=== PATIENT | female | born 1995 | race African-American/Black ===

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

== ENCOUNTER 2017-02-04 14:24 | Emergency (ER) | payer OTHER ==
[~2017-02-04] VITALS: Ht 162.6 cm; Wt 69.4 kg
[~2017-02-04 14:24] MED LIST changes: +CIPR250T30 PO; +METR500T PO
[2017-02-04 15:39] LABS: BILIRUBIN,URINE SMALL (NEG); GLUCOSE,URINE NEGATIVE (NEG); NITRITE,URINE NEGATIVE (NEG); PROTEIN,URINE NEGATIVE (NEG-TRACE)
--- NOTE | 2017-02-04 15:51 | PHYS DOC ---
Past Medical History Past Medical History: Anxiety, Bipolar, Other Additional Past Medical Histor: ADHD Past Surgical History: No Surgical History Alcohol Use: None Drug Use: None Adult General Chief Complaint Chief Complaint: NEAR SYNCOPE HPI HPI Patient is a 21 year old female who presents to the emergency department for evaluation after having a near syncopal episode while at work. 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 The patient also noted that she was having "hot flashes" during this episode. Patient did not lose consciousness and did not experience a fall or injury as a result of this episode. The patient states that she is currently feeling better and has no complaints. The patient however does state over the past few days she has been having intermittent nausea. The patient admits that she is 3 days late on her menstrual cycle and that after this episode she went home and took 2 tests, both which were positive. The patient's primary concern coming to the emergency department is to confirm . Patient denies previous history of . Patient states that she is not on any medications and denies any known health problems. Patient is an active smoker. Review of Systems Review of Systems Constitutional: Denies fever or chills [] Eyes: Denies change in visual acuity, redness, or eye pain [] HENT: Denies nasal congestion or sore throat [] Respiratory: Denies cough or shortness of breath [] Cardiovascular: Near syncope, denies chest pain or edema[] GI: Denies abdominal pain, nausea, vomiting, bloody stools or diarrhea [] : Denies dysuria or hematuria [] Musculoskeletal: Denies back pain or joint pain [] Integument: Denies rash or skin lesions [] Neurologic: Denies headache, focal weakness or sensory changes [] Allergies Allergies Allergies Coded Allergies Type Severity Reaction Last Updated Verified No Known Allergies Allergy Unknown 11/03/15 Yes Physical Exam Physical Exam Constitutional: Well developed, well nourished, no acute distress, non-toxic appearance. [] HENT: Normocephalic, atraumatic, bilateral external ears normal, oropharynx moist, no oral exudates, nose normal. [] Eyes: PERRLA, EOMI, conjunctiva normal, no discharge. [] Neck: Normal range of motion, no tenderness, supple, no stridor. [] Cardiovascular:Heart rate regular rhythm, no murmur [] Lungs & Thorax: Bilateral breath sounds clear to auscultation [] Abdomen: Bowel sounds normal, soft, no tenderness, no masses, no pulsatile masses. [] Skin: Warm, dry, no erythema, no rash. [] Back: No tenderness, no CVA tenderness. [] Extremities: No tenderness, no cyanosis, no clubbing, ROM intact, no edema. [] Neurologic: Alert and oriented X 3, normal motor function, normal sensory function, no focal deficits noted. [] Current Patient Data Vital Signs Vital Signs Date Time Temp Pulse Resp B/P (MAP) Pulse Ox O2 Delivery O2 Flow Rate FiO2 02/04/17 14:38 98.8 95 18 76/70 (72) 98 Room Air 98.8 Lab Values Laboratory Tests Test 02/04/17 14:32 02/04/17 14:41 02/04/17 15:39 Urine Collection Type Unknown Urine Color Yellow Urine Clarity Clear Urine pH 6.0 Urine Specific [place] >=1.030 Urine Protein Negative mg/dL (NEG-TRACE) Urine Glucose (UA) Negative mg/dL (NEG) Urine Ketones (Stick) Trace mg/dL (NEG) Urine Blood Negative (NEG) Urine Nitrite Negative (NEG) Urine Bilirubin Small (NEG) Urine Urobilinogen Dipstick 1.0 mg/dL (0.2 mg/dL) Urine Leukocyte Esterase Negative (NEG) Urine RBC 0 /HPF (0-2) Urine WBC 1-4 /HPF (0-4) Urine Squamous Epithelial Cells Mod /LPF Urine Bacteria Moderate /HPF (0-FEW) Urine Mucus Marked /LPF POC Urine HCG, Qualitative Hcg positive (Negative) Maternal Serum HCG Beta Subunit 72 mIU/mL (0-5) H EKG EKG Rhythm strip interpretation by me: Heart rate 89, sinus rhythm, no ectopy Radiology/Procedures Radiology/Procedures Not performed[] Course & Med Decision Making Course & Med Decision Making Pertinent Labs and Imaging studies reviewed. (See chart for details) The patient's urine hCG was positive. Patient's serum hCG is 72 which would be expected with the patient being 3 days late from her normal menstrual cycle. The patient is otherwise in no acute distress and is feeling no pain at this time. The patient's UA showed a high specific gravity which would coincide with dehydration. This likely led to the patient's near syncopal episode today at work. Patient recommended to go home today for rest and hydration. Counseled patient on smoking cessation in the emergency department as this can be harmful to developing baby during . Patient voiced understanding. The patient will be medically cleared to return to work tomorrow. Patient was referred to Dr. Raya of [facility] to schedule routine follow-up in the next 3-4 weeks. Advised return to the emergency department for any worsening symptoms. The patient voiced understanding and in agreement with treatment plan. Dragon Disclaimer Dragon Disclaimer This electronic medical record was generated, in whole or in part, using a voice recognition dictation system. Departure Departure Impression: Primary Impression: Positive test Additional Impression: Dehydration Disposition: 01 HOME, SELF-CARE Condition: IMPROVED Referrals: CALEB SAUL MD (PCP) IRIS LEWIS MD Patient Instructions: Dehydration, Adult, Additional Instructions: Be sure to rest and drink fluids today as your lab work showed evidence of mild dehydration. This likely contributed to your symptoms of near fainting while at work. You were found to have a positive test at today's visit. Based off of your menstrual period, you are approximately 4 weeks . It is recommended that you follow-up with an [facility] in the next 3-4 weeks for reevaluation and for care. Is also recommended that you take a vitamin once daily during her . Return to the emergency department for any worsening symptoms. Scripts Pnv With Ca,No.72/Iron,Carb/Fa ( PLUS IRON TABLET) 1 Each Tablet 1 TAB PO DAILY, #30 TAB 3 Refills Prov: AIMEE RICHARDSON MD 02/04/17 Problem Qualifiers AIMEE RICHARDSON MD Feb 04, 2017 15:51
[2017-02-04 16:01] LABS: BACTERIA,URINE MODERATE /HPF (0-FEW); RBC,URINE 0 /HPF (0-2); SQUAMOUS EPITHELIAL CELL,UR MOD /LPF
[2017-02-04 16:34] VITALS: BP 136/77
[2017-02-04] MEDS ORDERED: PNV1TABL34 PO (16:42)
== END 2017-02-04 16:59 | disposition home or self-care (01) ==
LOC: ER 14:24
DX: E86.0 Dehydration (principal); F90.9 Attention-deficit hyperactivity disorder, unspecified type; F31.9 Bipolar disorder, unspecified; R55 Syncope and collapse; R11.0 Nausea; R41.9 Unspecified symptoms and signs involving cognitive functions and awareness
CPT/HCPCS: 36415; 81001; 81025; 84702; 87086; 99284

== ENCOUNTER 2017-04-03 00:26 | Emergency (ER) | payer OTHER ==
[~2017-04-03] VITALS: Ht 162.6 cm; Wt 68.0 kg
[~2017-04-03 00:26] MED LIST changes: +PNV1TABL34 PO
[2017-04-03 00:32] VITALS: BP 116/63
[2017-04-03 00:59] LABS: BASO # 0.1 x10^3/uL (0.0-0.2); BASO % 0 % (0-3); EOS % 2 % (0-3); HEMATOCRIT 36.3 % (36.0-47.0); HEMOGLOBIN 12.5 g/dL (12.0-15.5); LYMPH # 2.9 x10^3/uL (1.0-4.8); LYMPH % 16 % (24-48); MEAN CORPUSCULAR HEMOGLOBIN 34 pg (25-35); MEAN CORPUSCULAR HGB CONC 34 g/dL (31-37); MEAN CORPUSCULAR VOLUME 99 fL (79-100); MONO % 6 % (0-9); NEUT % 76 % (31-73); PLATELET COUNT 270 x10^3/uL (140-400); RED BLOOD COUNT 3.66 x10^6/uL (3.50-5.40); RED CELL DISTRIBUTION WIDTH 12.7 % (11.5-14.5); WHITE BLOOD COUNT 17.9 x10^3/uL (4.0-11.0)
[2017-04-03 01:01] LABS: BILIRUBIN,URINE NEGATIVE (NEG); GLUCOSE,URINE NEGATIVE (NEG); NITRITE,URINE NEGATIVE (NEG); PROTEIN,URINE NEGATIVE (NEG-TRACE); UROBILINOGEN,URINE 0.2 mg/dL (0.2 mg/dL)
[2017-04-03 01:10] LABS: CALCIUM 8.9 mg/dL (8.5-10.1); CREATININE 0.6 mg/dL (0.6-1.0); GFR 155.8; POTASSIUM 3.4 mmol/L (3.5-5.1)
[2017-04-03 01:11] LABS: BACTERIA,URINE FEW /HPF (0-FEW); RBC,URINE OCC /HPF (0-2); SQUAMOUS EPITHELIAL CELL,UR FEW /LPF
[2017-04-03 01:17] LABS: ALBUMIN 3.4 g/dL (3.4-5.0); ALBUMIN/GLOBULIN RATIO 0.9 (1.0-1.7); TOTAL BILIRUBIN 0.3 mg/dL (0.2-1.0); TOTAL PROTEIN 7.3 g/dL (6.4-8.2)
--- NOTE | 2017-04-03 01:51 | RAD ---
Obstetrical ultrasound 04/03/2017 INDICATION: Vaginal bleeding. LMP 01/03/2017. COMPARISON: Ultrasound pelvis September 13, 2016 TECHNIQUE: Sonographic imaging of the pelvis was performed utilizing transabdominal and transvaginal imaging. FINDINGS: The uterus measures 9.6 x 6.9 x 5.9 cm. A single gestational sac is identified with a fetus with crown-rump length measuring 2.3 cm compatible with a gestational age of 9 weeks 0 days. No heart tones are identified. The right ovary measures 3.4 x 1.9 x 1.9 cm. The left ovary measures 3.1 x 1.3 x 1.3 cm. Arterial and venous waveforms are identified within the ovaries bilaterally at time of imaging. Corpus luteum is noted within the right ovary measuring 2.1 x 1.8 cm. There is no free fluid within the pelvis. IMPRESSION: Single intrauterine gestation is identified with crown-rump length compatible gestational age of 9 weeks 0 days. Gestational age is discordant with provided LMP. Additionally, no heart tones are identified suggestive of failure. Critical results were discussed with Dr. Webber at 1:45 AM on 04/03/2017. Electronically signed by: Sara Miller MD (04/03/2017 1:48 AM) [facility]
[2017-04-03 02:38] LABS: PLT ESTIMATE ADEQUATE (ADEQUATE)
--- NOTE | 2017-04-03 03:24 | PHYS DOC ---
Past Medical History Past Medical History: Anxiety, Bipolar, Other Additional Past Medical Histor: ADHD Past Surgical History: No Surgical History Alcohol Use: None Drug Use: None Adult General Chief Complaint Chief Complaint: VAGINAL BLEEDING HPI HPI Patient is a 21 year old female who presents with vaginal bleeding in early . Patient is , at 12 weeks gestation. Reports onset of vaginal spotting this afternoon. Has not required use of pads. She denies any associated pain. She states symptoms began after having intercourse. She denies fevers or chills, nausea or vomiting, dysuria or hematuria, vaginal discharge. Has not yet established care with an OB. Review of Systems Review of Systems Constitutional: Denies fever or chills HENT: Denies nasal congestion or sore throat Respiratory: Denies cough or shortness of breath Cardiovascular: Denies chest pain or edema GI: Denies abdominal pain, nausea, vomiting : [place] vaginal bleeding Musculoskeletal: Denies back pain or joint pain Integument: Denies rash or skin lesions Neurologic: Denies headache, focal weakness or sensory changes All other systems were reviewed and found to be within normal limits, except as documented in this note. Allergies Allergies Allergies Coded Allergies Type Severity Reaction Last Updated Verified No Known Allergies Allergy Unknown 11/03/15 Yes Physical Exam Physical Exam Constitutional: Well developed, well nourished, no acute distress, non-toxic appearance. HENT: Normocephalic, atraumatic, bilateral external ears normal, oropharynx moist, nose normal. Eyes: PERRLA, EOMI, conjunctiva normal, no discharge. Neck: supple, no stridor. Cardiovascular: RRR, no murmurs, no edema. Lungs & Thorax: LCTAB, no wheezing, no respiratory distress. Abdomen: soft, nontender, nondistended. no masses or pulsatile masses, no rebound/guarding. Skin: Warm, dry, no erythema, no rash. Back: No CVA tenderness. Extremities: No tenderness, no edema. Neurologic: Alert and oriented X 3, no focal deficits noted. Psychologic: Affect normal, judgement normal, mood normal. Current Patient Data Vital Signs Vital Signs Date Time Temp Pulse Resp B/P (MAP) Pulse Ox O2 Delivery O2 Flow Rate FiO2 04/03/17 00:32 98.9 99 18 116/63 (80) 99 Room Air 98.9 Lab Values Laboratory Tests Test 04/03/17 00:30 04/03/17 00:47 Urine Collection Type Unknown Urine Color Yellow Urine Clarity Clear Urine pH 6.0 Urine Specific [place] 1.020 Urine Protein Negative mg/dL (NEG-TRACE) Urine Glucose (UA) Negative mg/dL (NEG) Urine Ketones (Stick) Negative mg/dL (NEG) Urine Blood Large (NEG) Urine Nitrite Negative (NEG) Urine Bilirubin Negative (NEG) Urine Urobilinogen Dipstick 0.2 mg/dL (0.2 mg/dL) Urine Leukocyte Esterase Negative (NEG) Urine RBC Occ /HPF (0-2) Urine WBC 1-4 /HPF (0-4) Urine Squamous Epithelial Cells Few /LPF Urine Bacteria Few /HPF (0-FEW) Urine Mucus Mod /LPF White Blood Count 17.9 x10^3/uL (4.0-11.0) H Red Blood Count 3.66 x10^6/uL (3.50-5.40) Hemoglobin 12.5 g/dL (12.0-15.5) Hematocrit 36.3 % (36.0-47.0) Mean Corpuscular Volume 99 fL (79-100) Mean Corpuscular Hemoglobin 34 pg (25-35) Mean Corpuscular Hemoglobin Concent 34 g/dL (31-37) Red Cell Distribution Width 12.7 % (11.5-14.5) Platelet Count 270 x10^3/uL (140-400) Neutrophils (%) (Auto) 76 % (31-73) H Lymphocytes (%) (Auto) 16 % (24-48) L Monocytes (%) (Auto) 6 % (0-9) Eosinophils (%) (Auto) 2 % (0-3) Basophils (%) (Auto) 0 % (0-3) Neutrophils # (Auto) 13.5 x10^3uL (1.8-7.7) H Lymphocytes # (Auto) 2.9 x10^3/uL (1.0-4.8) Monocytes # (Auto) 1.1 x10^3/uL (0.0-1.1) Eosinophils # (Auto) 0.3 x10^3/uL (0.0-0.7) Basophils # (Auto) 0.1 x10^3/uL (0.0-0.2) Segmented Neutrophils % 65 % (35-66) Band Neutrophils % 2 % (0-9) Lymphocytes % 32 % (24-48) Atypical Lymphocytes % (Manual) 1 % (0-0) H Platelet Estimate Adequate (ADEQUATE) Giant Platelets Occ Maternal Serum HCG Beta Subunit 4076 mIU/mL (0-5) H Sodium Level 136 mmol/L (136-145) Potassium Level 3.4 mmol/L (3.5-5.1) L Chloride Level 99 mmol/L (98-107) Carbon Dioxide Level 25 mmol/L (21-32) Anion Gap 12 (6-14) Blood Urea Nitrogen 10 mg/dL (7-20) Creatinine 0.6 mg/dL (0.6-1.0) Estimated GFR (Cockcroft-Gault) 155.8 BUN/Creatinine Ratio 17 (6-20) Glucose Level 98 mg/dL (70-99) Calcium Level 8.9 mg/dL (8.5-10.1) Total Bilirubin 0.3 mg/dL (0.2-1.0) Aspartate Amino Transferase (AST) 20 U/L (15-37) Alanine Aminotransferase (ALT) 30 U/L (14-59) Alkaline Phosphatase 63 U/L (46-116) Total Protein 7.3 g/dL (6.4-8.2) Albumin 3.4 g/dL (3.4-5.0) Albumin/Globulin Ratio 0.9 (1.0-1.7) L Laboratory Tests 04/03/17 00:47 Laboratory Tests 04/03/17 00:47 EKG EKG [] Radiology/Procedures Radiology/Procedures PROCEDURE: OB < 14 WKS Obstetrical ultrasound 04/03/2017 INDICATION: Vaginal bleeding. LMP 01/03/2017. COMPARISON: Ultrasound pelvis September 13, 2016 TECHNIQUE: Sonographic imaging of the pelvis was performed utilizing transabdominal and transvaginal imaging. FINDINGS: The uterus measures 9.6 x 6.9 x 5.9 cm. A single gestational sac is identified with a fetus with crown-rump length measuring 2.3 cm compatible with a gestational age of 9 weeks 0 days. No heart tones are identified. The right ovary measures 3.4 x 1.9 x 1.9 cm. The left ovary measures 3.1 x 1.3 x 1.3 cm. Arterial and venous waveforms are identified within the ovaries bilaterally at time of imaging. Corpus luteum is noted within the right ovary measuring 2.1 x 1.8 cm. There is no free fluid within the pelvis. IMPRESSION: Single intrauterine gestation is identified with crown-rump length compatible gestational age of 9 weeks 0 days. Gestational age is discordant with provided LMP. Additionally, no heart tones are identified suggestive of failure. Critical results were discussed with Dr. Webber at 1:45 AM on 04/03/2017. Electronically signed by: Vic Carl MD (04/03/2017 1:48 AM) [facility] DICTATED and SIGNED BY: VIC CARL MD DATE: 04/03/17 0141 [] Course & Med Decision Making Course & Med Decision Making Pertinent Labs and Imaging studies reviewed. (See chart for details) The patient presents with vaginal bleeding in early . Vitals are stable , not tachycardic or hypotensive. OB ultrasound showed a fetus smaller than expected based on LMP, no heart tones identified. I did notify patient of results and she was very distraught. She became tearful and wanted to leave the department immediately. She declined pelvic exam. She did not receive potassium supplementation. She did not wait for written discharge instructions. Both I and the nurse provided verbal instructions. Recommend rest/pelvic rest, Tylenol or ibuprofen for pain, follow-up with Dr. Ptaton in the OB clinic within 2 days, come back for high fever, severe pain, uncontrolled vomiting, heavy bleeding requiring greater than 1 pad per hour, any otherwise worsening condition. She left prior to receiving instructions but is being discharged in stable condition. Dragon Disclaimer Dragon Disclaimer This electronic medical record was generated, in whole or in part, using a voice recognition dictation system. Departure Departure Impression: Primary Impression: Missed Disposition: HOME, SELF-CARE Condition: STABLE Referrals: CALEB SAUL MD (PCP) CHRISTEN DARBY MD Apr 03, 2017 03:24
== END 2017-04-03 01:55 | disposition home or self-care (01) ==
LOC: ER 00:26
DX: O02.1 Missed abortion (principal); O99.341 Other mental disorders complicating pregnancy, first trimester; F31.9 Bipolar disorder, unspecified; F41.9 Anxiety disorder, unspecified; F90.9 Attention-deficit hyperactivity disorder, unspecified type; Z3A.12 12 weeks gestation of pregnancy
CPT/HCPCS: 36415; 76801; 80053; 81001; 84702; 85007; 85025; 86850; 86900; 86901; 99285-25

== ENCOUNTER 2017-04-06 11:51 | Day surgery (SDC) | payer OTHER ==
[2017-04-06] MEDS ORDERED: OXYTOCIN 10 UNIT/ML VIAL. ONE ×2 (12:33→13:39)
[2017-04-06] MEDS ORDERED: miSOPROStol 200MCG TAB 200 MCG TABLET ONE ×2 (12:33→14:16)
[2017-04-06] MEDS ORDERED: SEVOFLURANE 16 TO 30 MINUTES. IH ONE (13:00)
[2017-04-06] MEDS ORDERED: DEXAMETHASONE SOD PHOS 20 MG/5 ML VIAL. ONE (13:00)
[2017-04-06] MEDS ORDERED: IV RINGERS,LACTATED 1000ML 1,000 ML IV SCH ×2 (13:00→14:05)
[2017-04-06] MEDS ORDERED: fentaNYL PF VIAL 100 MCG/2 ML VIAL ONE (13:00)
[2017-04-06] MEDS ORDERED: ONDANSETRON PF 4 MG/2 ML VIAL. ONE (13:00)
[2017-04-06] MEDS ORDERED: PROPOFOL 20 ML IV ONE (13:00)
[2017-04-06] MEDS ORDERED: LIDOCAINE 2% PF Vial for OR 5 ML VIAL. ONE (13:00)
--- NOTE | 2017-04-06 13:49 | PDOC ---
BRIEF OPERATIVE NOTE Pre-Op Diagnosis Incomplete ab Post-Op Diagnosis Same Procedure Performed Suction D and C Surgeon Pooja Anesthesia Type: General Blood Loss 100cc Specimens Obtained POC Complications None DENNIS VELIZ MD Apr 06, 2017 13:49
[2017-04-06] MEDS ORDERED: DOXY100C2 PO (13:56)
[2017-04-06] MEDS ORDERED: METH0.2T36 PO (13:56)
[2017-04-06] MEDS ORDERED: NAPR500T4 PO (13:56)
[2017-04-06] MEDS ORDERED: HYDR-971 PO (13:56)
[2017-04-06] MEDS ORDERED: ONDANSETRON PF 4 MG/2 ML VIAL. IV PRN (14:15)
[2017-04-06] MEDS ORDERED: fentaNYL PF VIAL 100 MCG/2 ML VIAL IV PRN (14:15)
[2017-04-06] MEDS ORDERED: HYDROmorphone 2 MG/ML VIAL IV PRN (14:15)
[2017-04-06] MEDS ORDERED: PROCHLORPERAZINE 10 MG/2 ML VIAL. IV PRN (14:15)
[2017-04-06] MEDS ORDERED: MORPHINE SULFATE 4 MG/ML DISP.SYRIN. IV PRN (14:15)
[2017-04-06] MEDS ORDERED: LIDOCAINE 1% PF 2 ML VIAL. ID PRN (14:15)
[2017-04-06] MEDS: fentaNYL PF VIAL 100 MCG/2 ML VIAL IV PRN ×2 (14:16→14:38)
[2017-04-06] MEDS ORDERED: HYDROcodone/APAP 5/325MG 1 TAB TABLET PO ONE (14:45)
[2017-04-06 15:22] VITALS: BP 112/58
--- NOTE | 2017-04-06 16:25 | OP ---
DATE OF SURGERY: 04/06/2017 PREOPERATIVE DIAGNOSIS: 10 week incomplete miscarriage. POSTOPERATIVE DIAGNOSES: 10 week incomplete miscarriage. PROCEDURE: Suction D and C. ANESTHESIA: General. ESTIMATED BLOOD LOSS: 100 mL. SURGEON: Omar Patton MD. EPIC WILLOW SPECIALIST: None. SPECIMENS: Products of conception. COMPLICATIONS: None. CONDITION: Stable. DESCRIPTION OF PROCEDURE: Risks, benefits, indications, alternatives and expectations discussed.in detail with the patient. The patient was brought to the OR theater, placed in a dorsal lithotomy position in Magen stirrups. Under adequate general anesthesia, the patient was prepped and draped in usual sterile manner. Exam under anesthesia was performed. Uterus was anteflexed, approximately 10 weeks size. Posterior weighted speculum was placed in the vaginal vault. Cervix was grasped with single tooth tenaculum. Cervix was dilated up to #8 Hegar dilator. A #8 curved suction cannula was placed through the cervical os. Gentle suction curettage was performed in all the quadrants. Products of conception were seen going through clear tubing. There was tissue at the cervical os. This was grasped with the ring forceps that appeared to be the gestational sac and embryo. This was placed on top of the sponge and handed off the operative field to go with the rest of the specimens. Further suction curettage was performed, products of conception still seen going through clear tubing. Sharp curettage was performed in all quadrants. The uterine cry was heard. The suction cannula was once again placed. No further products of conception were seen going through clear tubing. Clear tubing was rinsed with normal saline. Exam under anesthesia was performed once again. Uterus was approximately 6 weeks size, anteflexed, firm. Single tooth tenaculum has been removed. The puncture sites were hemostatic. Vaginal vault was wiped free of any of tissue or blood. Procedure was terminated. The patient went to postop anesthesia recovery in stable condition. Sponge, instrument counts were correct x 2 per nursing staff. OMAR PATTON MD DR: ДМИТРИЙ/leticia JOB#: [id number] / [id number]
--- NOTE | 2017-04-10 09:48 | PATHOLOGY ---
PATHOLOGY REPORT * * * * * * * * FINAL DIAGNOSIS: Uterine contents, suction D and C: - Products of conception, comprised of few small segments of tissue, placental membranous tissue, immature chorionic villi showing focal hydropic degenerative changes, and segments of decidual tissue showing focal hemorrhage, necrosis, and acute inflammation. (JPM:rljuan luis; 04/07/2017) REPORT ELECTRONICALLY SIGNED BY: Aman Howe M.D. DATE/TIME: 04/10/2017 08:20 * * * * * * * * GROSS PATHOLOGY: Received in formalin labeled "Andrea Floyd, products of conception" is a 21 g, 8.5 x 5.5 x 1.5 cm aggregate of pink-gonsalez soft tissue fragments. parts are not grossly identified. Sustainability Officer sections of the specimen are submitted in cassette A1-A3. [place] [place] INITIAL CPT CODE(S): A; 77756 Professional services [place] [place] [address] Technical services performed by [facility] at [address] [place] [address]. SPECIMEN(S) RECEIVED: A.Products of conception CLINICAL HISTORY: Missed PATIENT: ANDREA FLOYD /AGE: 812/28/1995 (Age: 21) PATIENT #: [id number] ALT CASE #: SPECIMEN COLLECTION DATE: 04/06/2017 SPECIMEN RECEIVED DATE: 04/06/2017 [facility] - [address] [place] [address] - PHONE: [phone] * * * END OF REPORT * * *
== END 2017-04-06 15:55 | disposition home or self-care (01) ==
LOC: SURG 11:51
PROVIDERS: ATTEND Specialist
DX: O03.4 Incomplete spontaneous abortion without complication (principal); F41.9 Anxiety disorder, unspecified; F31.9 Bipolar disorder, unspecified; F90.9 Attention-deficit hyperactivity disorder, unspecified type
CPT/HCPCS: 59812; 88305; J1100; J2405; J2590; J2704; J3010; J2001

== ENCOUNTER 2018-01-15 13:37 | Emergency (ER) | payer OTHER ==
[~2018-01-15] VITALS: Ht 162.6 cm; Wt 75.7 kg
[~2018-01-15 13:37] MED LIST changes: +DOXY100C2 PO; +HYDR-971 PO; +METH0.2T36 PO; +NAPR-514 PO
[2018-01-15 16:24] VITALS: BP 138/83
[2018-01-15 17:06] LABS: BILIRUBIN,URINE SMALL (NEG); CLARITY,URINE TURBID; COLOR,URINE AMBER; NITRITE,URINE POSITIVE (NEG); PROTEIN,URINE 30 mg/dL (NEG-TRACE)
[2018-01-15] MEDS: KETOROLAC 30 MG/ML VIAL. IV ONE (17:07)
[2018-01-15] MEDS: IV NORMAL SALINE 1000ML BAG 1,000 ML IV SCH (17:08)
--- NOTE | 2018-01-15 17:08 | PHYS DOC ---
Past Medical History Past Medical History: No Pertinent History Past Surgical History: No Surgical History Alcohol Use: None Drug Use: None Adult General Chief Complaint Chief Complaint: ABDOMINAL PAIN HPI HPI Patient is a 22-year-old female who presents to the emergency department for evaluation. She states that 3 days ago she had the relatively sudden onset of left flank pain, radiating towards her left lower abdomen/pelvis. She states that her LMP was about 2 weeks ago, but she thought she saw a little bit of spotting vaginally today. She states she has had urinary frequency but no dysuria. She denies any nausea or vomiting. She has not had any fevers or chills. She denies any abnormal vaginal discharge. There are no alleviating, or exacerbating factors to her symptoms. Review of Systems Review of Systems Constitutional: Denies fever or chills [] Eyes: Denies change in visual acuity, redness, or eye pain [] HENT: Denies nasal congestion or sore throat [] Respiratory: Denies cough or shortness of breath [] Cardiovascular: No additional information not addressed in HPI [] GI: Denies nausea, vomiting, bloody stools or diarrhea [] : Denies dysuria. Does report some urinary frequency.[] Musculoskeletal: Denies back pain or joint pain [] Integument: Denies rash or skin lesions [] Neurologic: Denies headache, focal weakness or sensory changes [] Endocrine: Denies polyuria or polydipsia [] All other systems were reviewed and found to be within normal limits, except as documented in this note. Current Medications Current Medications Current Medications Medications (Trade) Dose Ordered Sig/[facility] Start Time Stop Time Status Last Admin Dose Admin Ceftriaxone Sodium 50 ml @ 100 mls/hr 1X ONCE 01/15/18 17:45 01/15/18 18:14 01/15/18 17:45 100 MLS/HR Ketorolac Tromethamine (Toradol 30mg Vial) 30 mg 1X ONCE 01/15/18 16:45 01/15/18 16:49 DC 01/15/18 17:07 30 MG Sodium Chloride 1,000 ml @ 1,000 mls/hr Q1H 01/15/18 16:43 01/15/18 17:42 DC 01/15/18 17:08 1,000 MLS/HR Allergies Allergies Allergies Coded Allergies Type Severity Reaction Last Updated Verified No Known Drug Allergies 08/02/17 No Physical Exam Physical Exam PHYSICAL EXAM: CONSTITUTIONAL: Well developed, well nourished HEAD: normocephalic, atraumatic EENT: PERRL, EOMI. Conjunctivae normal color, sclerae non-icteric; moist mucous membranes. NECK: Supple, non-tender; no meningismus. LUNGS: Lungs CTA, breathing even and unlabored. Normal air movement. HEART: Regular rate and rhythm, no murmur CHEST: No deformity; non-tender ABDOMEN: The abdomen is soft, there is tenderness to palpation to the left mid and lower abdomen, as well as the suprapubic area on the left, without other abdominal tenderness to palpation. The right lower quadrant and midline pelvis are nontender. The remainder the abdomen is soft and non-tender, no masses or bruits. EXTREM: Normal ROM; no deformity, no calf tenderness. Normal pulses palpable in all extremities. There is no pedal edema. SKIN: No rash; no diaphoresis NEURO: Alert; normal speech and cognition; CN's grossly intact; strength grossly intact without focal deficit. BACK: There is mild left-sided CVA TTP. PELVIC EXAM: Normal external genitalia. There is a trace amount of vaginal blood , without active vaginal bleeding. There is no cervical motion tenderness. There is no adnexal tenderness to palpation or masses. There is tenderness to palpation in the left lower abdomen superior to the adnexal region. Exam was performed in the presence of the patient's nurse, Mandy. Current Patient Data Vital Signs Vital Signs Date Time Temp Pulse Resp B/P (MAP) Pulse Ox O2 Delivery O2 Flow Rate FiO2 01/15/18 16:24 98.8 99 16 138/83 (101) 99 Room Air 98.8 Lab Values Laboratory Tests Test 01/15/18 16:30 01/15/18 16:37 01/15/18 17:00 Urine Collection Type Unknown Urine Color Ramila Urine Clarity Turbid Urine pH 6.0 Urine Specific [place] 1.025 Urine Protein 30 mg/dL (NEG-TRACE) Urine Glucose (UA) Negative mg/dL (NEG) Urine Ketones (Stick) 15 mg/dL (NEG) Urine Blood Large (NEG) Urine Nitrite Positive (NEG) Urine Bilirubin Small (NEG) Urine Urobilinogen Dipstick 1.0 mg/dL (0.2 mg/dL) Urine Leukocyte Esterase Small (NEG) Urine RBC 3-5 /HPF (0-2) Urine WBC 5-10 /HPF (0-4) Urine Squamous Epithelial Cells Mod /LPF Urine Bacteria Many /HPF (0-FEW) Urine Hyaline Casts Moderate /HPF Urine Mucus Marked /LPF POC Urine HCG, Qualitative Hcg negative (Negative) White Blood Count 15.7 x10^3/uL (4.0-11.0) H Red Blood Count 4.19 x10^6/uL (3.50-5.40) Hemoglobin 14.0 g/dL (12.0-15.5) Hematocrit 40.9 % (36.0-47.0) Mean Corpuscular Volume 98 fL (79-100) Mean Corpuscular Hemoglobin 34 pg (25-35) Mean Corpuscular Hemoglobin Concent 34 g/dL (31-37) Red Cell Distribution Width 12.8 % (11.5-14.5) Platelet Count 251 x10^3/uL (140-400) Neutrophils (%) (Auto) 75 % (31-73) H Lymphocytes (%) (Auto) 12 % (24-48) L Monocytes (%) (Auto) 12 % (0-9) H Eosinophils (%) (Auto) 0 % (0-3) Basophils (%) (Auto) 1 % (0-3) Neutrophils # (Auto) 11.8 x10^3uL (1.8-7.7) H Lymphocytes # (Auto) 1.9 x10^3/uL (1.0-4.8) Monocytes # (Auto) 1.9 x10^3/uL (0.0-1.1) H Eosinophils # (Auto) 0.0 x10^3/uL (0.0-0.7) Basophils # (Auto) 0.1 x10^3/uL (0.0-0.2) Segmented Neutrophils % 75 % (35-66) H Band Neutrophils % 1 % (0-9) Lymphocytes % 16 % (24-48) L Monocytes % 6 % (0-10) Eosinophils % 2 % (0-5) Platelet Estimate Adequate (ADEQUATE) Sodium Level 136 mmol/L (136-145) Potassium Level 3.3 mmol/L (3.5-5.1) L Chloride Level 100 mmol/L (98-107) Carbon Dioxide Level 26 mmol/L (21-32) Anion Gap 10 (6-14) Blood Urea Nitrogen 10 mg/dL (7-20) Creatinine 0.8 mg/dL (0.6-1.0) Estimated GFR (Cockcroft-Gault) 91.4 BUN/Creatinine Ratio 13 (6-20) Glucose Level 118 mg/dL (70-99) H Calcium Level 9.0 mg/dL (8.5-10.1) Total Bilirubin 0.8 mg/dL (0.2-1.0) Aspartate Amino Transferase (AST) 21 U/L (15-37) Alanine Aminotransferase (ALT) 23 U/L (14-59) Alkaline Phosphatase 71 U/L (46-116) Total Protein 7.9 g/dL (6.4-8.2) Albumin 3.3 g/dL (3.4-5.0) L Albumin/Globulin Ratio 0.7 (1.0-1.7) L Lipase 64 U/L (73-393) L Laboratory Tests 01/15/18 17:00 Laboratory Tests 01/15/18 17:00 Microbiology 01/15/18 Wet Prep - Final, Complete WET PREP Final YEAST NONE SEEN TRICHOMONAS NONE SEEN CLUE CELLS NONE SEEN RBCS FEW SQUAMOUS EPS FEW EKG EKG [] Radiology/Procedures Radiology/Procedures [PROCEDURE: CT ABDOMEN PELVIS WO CONTRAST PQRS Compliance statement: One or more of the following individualized dose reduction techniques were utilized for this examination: 1. Automated exposure control. 2. Adjustment of the mA and/or kV according to patient size. 3. Use of iterative reconstruction technique. Indication:LEFT FLANK PAIN, NAUSEA X 3 DAYS. PREVIOUS SENT
TECHNIQUE: CT abdomen and pelvis without IV contrast with multiplanar reformats. COMPARISON: 08/02/2017 FINDINGS: Limited evaluation of solid abdominal and pelvic organs due to lack of IV contrast. Heart is normal in size. Clear lung bases. Noncontrast appearance of the liver, spleen, gallbladder, pancreas, adrenals within normal limits. No nephrolithiasis or hydronephrosis. Left kidney is asymmetrically enlarged with mild perinephric inflammatory changes. No enlarged retroperitoneal or pelvic adenopathy. No free pelvic fluid or ascites. No bowel obstruction. Normal appendix. Anteverted uterus. Urinary bladder is decompressed however shows no radiopaque stone. No pneumoperitoneum. No suspicious bony lesion. IMPRESSION: Limited evaluation of solid abdominal and pelvic organs due to lack of IV contrast. 1. Diffuse left renal edema with perinephric inflammation without hydronephrosis or obstructing ureteral stone. Differential diagnoses includes pyelonephritis or recently passed stone.] Course & Med Decision Making Course & Med Decision Making Pertinent Labs and Imaging studies reviewed. (See chart for details) [The patient's condition remains stable. I discussed test results in detail with the patient. She feels well most to go home and she appears well. I discussed importance of close follow-up with her primary care provider, whom she sees, and we discussed return precautions in detail.] Dragon Disclaimer Dragon Disclaimer This electronic medical record was generated, in whole or in part, using a voice recognition dictation system. Departure Departure Impression: Primary Impression: Pyelonephritis Disposition: 01 HOME, SELF-CARE Condition: STABLE Referrals: CALEB SAUL MD (PCP) Patient Instructions: Pyelonephritis, Adult, Urinary Tract Infection Additional Instructions: Make sure to follow-up with your primary care provider in 3-4 days, for evaluation of the urine culture, which is currently pending, to ensure that to her on the correct antibiotic to treat your specific infection. Scripts Sulfamethoxazole/Trimethoprim (BACTRIM DS TABLET) 1 Each Tablet 1 TAB PO BID, #20 TAB Prov: KARTHIK MARVIN MD 01/15/18 KARTHIK MARVIN MD Jan 15, 2018 17:08
[2018-01-15 17:18] LABS: BASO # 0.1 x10^3/uL (0.0-0.2); BASO % 1 % (0-3); EOS % 0 % (0-3); HEMATOCRIT 40.9 % (36.0-47.0); LYMPH # 1.9 x10^3/uL (1.0-4.8); LYMPH % 12 % (24-48); MEAN CORPUSCULAR HEMOGLOBIN 34 pg (25-35); MEAN CORPUSCULAR HGB CONC 34 g/dL (31-37); MEAN CORPUSCULAR VOLUME 98 fL (79-100); MONO # 1.9 x10^3/uL (0.0-1.1); MONO % 12 % (0-9); NEUT # 11.8 x10^3uL (1.8-7.7); NEUT % 75 % (31-73); PLATELET COUNT 251 x10^3/uL (140-400); RED BLOOD COUNT 4.19 x10^6/uL (3.50-5.40); RED CELL DISTRIBUTION WIDTH 12.8 % (11.5-14.5); WHITE BLOOD COUNT 15.7 x10^3/uL (4.0-11.0)
[2018-01-15 17:18] LABS: BACTERIA,URINE MANY /HPF (0-FEW); HYALINE CASTS, URINE MODERATE /HPF; SQUAMOUS EPITHELIAL CELL,UR MOD /LPF
[2018-01-15 17:38] LABS: CREATININE 0.8 mg/dL (0.6-1.0); GFR 91.4; POTASSIUM 3.3 mmol/L (3.5-5.1)
--- NOTE | 2018-01-15 17:45 | RAD ---
PQRS Compliance statement: One or more of the following individualized dose reduction techniques were utilized for this examination: 1. Automated exposure control. 2. Adjustment of the mA and/or kV according to patient size. 3. Use of iterative reconstruction technique. Indication:LEFT FLANK PAIN, NAUSEA X 3 DAYS. PREVIOUS SENT
TECHNIQUE: CT abdomen and pelvis without IV contrast with multiplanar reformats. COMPARISON: 08/02/2017 FINDINGS: Limited evaluation of solid abdominal and pelvic organs due to lack of IV contrast. Heart is normal in size. Clear lung bases. Noncontrast appearance of the liver, spleen, gallbladder, pancreas, adrenals within normal limits. No nephrolithiasis or hydronephrosis. Left kidney is asymmetrically enlarged with mild perinephric inflammatory changes. No enlarged retroperitoneal or pelvic adenopathy. No free pelvic fluid or ascites. No bowel obstruction. Normal appendix. Anteverted uterus. Urinary bladder is decompressed however shows no radiopaque stone. No pneumoperitoneum. No suspicious bony lesion. IMPRESSION: Limited evaluation of solid abdominal and pelvic organs due to lack of IV contrast. 1. Diffuse left renal edema with perinephric inflammation without hydronephrosis or obstructing ureteral stone. Differential diagnoses includes pyelonephritis or recently passed stone. Electronically signed by: Reji Haile DO (01/15/2018 5:41 PM) [facility]
[2018-01-15 17:46] LABS: ALBUMIN 3.3 g/dL (3.4-5.0); ALBUMIN/GLOBULIN RATIO 0.7 (1.0-1.7); TOTAL BILIRUBIN 0.8 mg/dL (0.2-1.0); TOTAL PROTEIN 7.9 g/dL (6.4-8.2)
[2018-01-15 17:55] LABS: % BANDS 1 % (0-9); % EOS 2 % (0-5); % LYMPHS 16 % (24-48); % MONOS 6 % (0-10); % SEGS 75 % (35-66); PLT ESTIMATE ADEQUATE (ADEQUATE)
[2018-01-15] MEDS ORDERED: SULF1TAB24 PO (18:03)
[2018-01-16 15:29] LABS: GC PROBE Negative (Negative)
== END 2018-01-15 18:41 | disposition home or self-care (01) ==
LOC: ER 13:37 → MERGE 13:37 → ER 18:41
DX: N12 Tubulo-interstitial nephritis, not specified as acute or chronic (principal)
CPT/HCPCS: 36415; 74176; 80053; 81001; 81025; 83690; 85007; 85025; 87086; 87491; 87591; 96365; 96375; 99285; J0690; J1885; J7030; Q0111

== ENCOUNTER 2020-01-12 01:14 | Emergency (ER) | payer SELFPAY ==
[~2020-01-12] VITALS: Ht 162.6 cm; Wt 72.7 kg
[~2020-01-12 01:14] MED LIST changes: +HYDR-3164 PO; -HYDR-971 PO
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
[2020-01-12 06:30] VITALS: BP 113/61
== END 2020-01-12 07:03 | disposition home or self-care (01) ==
LOC: ER 01:14
DX: S00.81XA Abrasion of other part of head, initial encounter (principal); S10.81XA Abrasion of other specified part of neck, initial encounter; F10.229 Alcohol dependence with intoxication, unspecified; R60.0 Localized edema; F41.9 Anxiety disorder, unspecified; F31.9 Bipolar disorder, unspecified; F17.200 Nicotine dependence, unspecified, uncomplicated; Y08.89XA Assault by other specified means, initial encounter; Y93.89 Activity, other specified; Y92.89 Other specified places as the place of occurrence of the external cause; Y99.8 Other external cause status
CPT/HCPCS: 99283